=== PATIENT | female | born 1985 ===

== ENCOUNTER 2016-12-12 16:01 | Inpatient (IN) | payer MEDICAID ==
[2016-12-12 16:43] VITALS: BMI 30.8
[2016-12-12] MEDS: Lactated Ringer's 1,000 ML IV SCH ×2 (17:15→18:30)
[2016-12-12] MEDS ORDERED: ceFAZolin 2 GM in Sodium Chloride 0.9% 100 ML IVPB ONE (17:16)
[2016-12-12 17:36] LABS: HEMATOCRIT 35.4 % (34.0-47.0); MEAN CELL VOLUME 84.9 fl (81.0-99.0); MEAN CORPUSCULAR HEMOGLOBIN 27.3 pg (27.0-31.0); MEAN CORPUSCULAR HGB CONC 32.2 g/dL (33.0-37.0); RED CELL DISTRIBUTION WIDTH 14.4 % (11.5-14.5); WHITE BLOOD COUNT 13.1 K/uL (4.8-10.8)
[2016-12-12 17:56] VITALS: TEMP 98.5
[2016-12-12] MEDS ORDERED: Lidocaine 2% PF (10 ml) Amp ONE ×2 (18:20→19:08)
--- NOTE | 2016-12-12 18:38 | OBADHP ---
Datetime: 12/12/2016 18:00 Admit Comment, IP Provider: 31 y/o @ 37.5 wks IUP JENNIFER 12/28/16 by LMP, confirmed with first trim US. Presents with ctx and back pain which started around 12 am last night. States ctx are gettin g closer together, at present roughly 10 min apart. Associated with some brown coloured mucous discha rge. +FM, no VB or LOF : A pos antibody negative, rubella immune, rpr NR, Hep, HIV, GC/chla negative, GBS not don e. Current problems LGA baby, no GDM OBGYN hx: CS x 2 (1999 @ term for non reassuring strip, 2012 @36 wks for IUGR) PSH: CS x2 PMH: autoimmune hepatits (controlled, no meds) MedS: PNV Allergies: ibuprofen (swelling) O: see exam A/P Latent labor; Repeat CS at term Bedside US: cephalic Labs reviewed admit to unit initiate CS protocol d/w Dr. Gianfranco Parker MD ob[facility] addendum: pt seen _ examined by me. agree with above assessment and plan. Datetime: 12/12/2016 17:06 Pelvic Type - PN: Adequate Extremities - PN: Normal Abdomen - PN: Normal Back - PN: Normal Breast - PN: Normal Lungs - PN: Normal Heart - PN: Normal Thyroid - PN: Normal Neurologic - PN: Normal HEENT - PN: Normal General - PN: Normal FHR - Baseline A Provider: 130 Contraction Comments Provider: q4min Comments, ACOG Physical Exam: cervix: long, 0.5 cm, high, nitrazine test negative Gestation - Est Wks by US: 37.5 Vital Signs Provider: Reviewed IP Chief Complaint: Uterine contractions NICHD Variability Prov Fetus A: Moderate 6-25bpm NICHD Accel Fetus A IP Provider: [id number] FHR Category Provider Fetus A: Category I Dilatation, Provider: 1 Genitourinary Exam: Normal DTRs - PN: Normal EGA AdmitDate IP: 37.5 IP Adm Impression: Term, intrauterine IP Admit Plan: Admit to unit; Initiate Section protocol
[2016-12-12] MEDS ORDERED: ePHEDrine 50 mg/ml Inj ONE (18:40)
[2016-12-12] MEDS ORDERED: ceFAZolin 1 GM in Sodium Chloride 0.9% 100 ML IVPB STA (20:27)
[2016-12-12] MEDS ORDERED: ceFAZolin 1 GM in Sodium Chloride 0.9% 100 ML IVPB ONE (20:32)
[2016-12-12] MEDS ORDERED: Naloxone 0.4 mg/ml Inj (Adult) IVP PRN (21:45)
[2016-12-12] MEDS ORDERED: DiphenhydrAMINE 50 mg/ml Inj IVP PRN (21:45)
[2016-12-12] MEDS ORDERED: Oxycodone/Acetaminophen 5/325 mg Tab PO PRN ×3 (21:45→23:08)
[2016-12-12] MEDS ORDERED: Lactated Ringer's 1,000 ML IV SCH (23:15)
[2016-12-13] MEDS ORDERED: Oxycodone/Acetaminophen 5/325 mg Tab PO PRN (01:53)
[2016-12-13] MEDS ORDERED: Naloxone 0.4 mg/ml Inj (Adult) IVP PRN (01:53)
[2016-12-13] MEDS ORDERED: DiphenhydrAMINE 50 mg/ml Inj IVP PRN (01:53)
[2016-12-13] MEDS ORDERED: Lactated Ringer's 1,000 ML IV SCH (01:53)
[2016-12-13] MEDS ORDERED: Simethicone 80 mg Chewtab PO SCH (04:00)
[2016-12-13 07:03] LABS: HEMATOCRIT 31.3 % (34.0-47.0); MEAN CELL VOLUME 84.9 fl (81.0-99.0); MEAN CORPUSCULAR HEMOGLOBIN 27.6 pg (27.0-31.0); MEAN CORPUSCULAR HGB CONC 32.5 g/dL (33.0-37.0); WHITE BLOOD COUNT 15.8 K/uL (4.8-10.8)
[2016-12-13] MEDS: Oxycodone/Acetaminophen 5/325 mg Tab PO PRN ×3 (08:08→18:44)
[2016-12-13] MEDS: Simethicone 80 mg Chewtab PO SCH ×3 (09:33→22:05)
--- NOTE | 2016-12-13 10:37 | OP ---
PROCEDURE DATE: 12/12/2016 PREOPERATIVE DIAGNOSES: 1. Term at 37.5 weeks. 2. Latent phase labor. 3 . History of prior delivery x2. POSTOPERATIVE DIAGNOSES: 1. Term at 37.5 weeks. 2. Latent phase labor. 3 . History of prior delivery x2. PROCEDURE: Repeat low transverse section. SURGEON: Dr. Dash Medel. GAME PRESERVE MANAGER: Dr. Adry Bolanos. SECOND DRUG ABUSE SOCIAL WORKER: PGY1. TYPE OF ANESTHESIA: Epidural. ANESTHESIA ADMINISTERED BY: Dr. Trivedi. FINDINGS: Showed a viable male infant with Apgars of 9 and 9 and a weight of 3315 grams and cephalic presentation. Clear amniotic fluid was noted. There were some adhesions of the bladder to the lower uterine segment. Bilateral grossly normal ovaries and tubes and otherwise grossly normal uterus. INDICATIONS: The patient is a 31-year-old female who presented at 37.5 weeks. She is a 3, para 2 with complains of onset of a contraction since night prior. Upon presentation, she complains of contractions every 5 minutes and rated her abdominal pain 7/10. She was admitted for latent phase labor and repeat section. Informed consent was obtained. DESCRIPTION OF PROCEDURE: The patient was taken to the operating room where she underwent her epidural anesthesia. She has some shortness of breath with the epidural anesthesia, so until this was resolved, the procedure was not started when her normal respiratory ability returned, the section was done. She was prepped and draped in the routine sterile fashion. A Pfannenstiel skin incision was made with the knife at the side of the keloid scar, which was excised. The incision was then extended down to the rectus fascia, which was incised in midline and extended bilaterally. The inferior rectus fascial edge was grasped with Christiano's, elevated, and the underlying rectus muscle was dissected off. The same procedure was performed along the superior rectus fascial edge. The rectus muscle was grasped on either side and elevated with the Gandhi clamps and incised in the midline and the abdominal cavity entered. The incision was extended superiorly and inferiorly. The bladder flap was created using sharp and blunt dissection. Veress incision was made with the knife and the incision was extended laterally and residually and in the cephalocaudad manner. Head was delivered itself by main portion of the baby. The mouth and nares were suctioned. The cord was clamped and cut. The baby was handed off to the awaiting remedy developer. Cord blood was collected. The placenta was delivered spontaneously and intact. The uterus was exteriorized and cleared of all clots and debris. The uterine incision was reapproximated with 0-Vicryl in a running locked fashion followed by an imbricated stitch. The abdomen was irrigated and cleared of all clots and debris. The uterine stitch was reinspected, good hemostasis was confirmed. The uterus was returned to the abdomen and the pelvic cavity. The uterine incision was reinspected and good hemostasis confirmed. The fascia was reapproximated with 0 Vicryl in a running fashion beginning in the right lateral corner going to the midline followed by another stitch beginning in the left lateral corner going to the midline. Each suture was sequentially tied. The wound was irrigated and good hemostasis was confirmed. The subcutaneous tissue was reapproximated with 2-0 plain in a simple interrupted fashion. The skin was reapproximated with 4-0 Vicryl in a subcuticular fashion. Yaritza were placed at the bilateral corners of the incision. All sponge, lap and needle count were correct. The patient returned to recovery room in satisfactory condition. Of note, Dr. Adry Bolanos was my psychological assistant. She used to assist in surgical entry, surgical exposure, delivery of the fetus, surgical closure, and hemostasis. Her assistance was essential to the procedure. Dash Medel MD
--- NOTE | 2016-12-14 00:27 | OBPPN ---
Datetime: 12/13/2016 08:42 PP Pain Prov: Within normal limits PP Nausea Prov: Denies PP Flatus Prov: No PP BM Prov: No PP Breasts Prov: Not Done PP Heart Prov: Normal PP Lungs Prov: Normal PP Abdomen/Uterus Prov: Normal PP Lochia Prov: Normal PP Vulva/Perineum Prov: Not Done PP CVA Tenderness Prov: Normal PP Extremities Prov: Normal PP Progress Prov: Normal PP Comments Phys Exam Prov: Dressing to be removed at 21:00. Incsion check at that point. PP Impression Prov: Normal progression PP Plan Prov: Continue present management PP Progress Note Prov: S: 31 yo s/p on 12/12/2016; Pt is seen and examined at beds skyla this AM. no overnight events. pt reports mild abdo pain but well controlled with meds; alonso d/c, dressing to be removed at 21:00 and incision to be inspected. No nausea, advised to advance diet as tolerated. Attempting to Breast feed. Lochia is similar to menses in volume. No bowel movement of fla tus; Denies: fever, chills, diarrhea, nausea, vomiting, chest pain, dyspnea, or dizziness. O: VS: stable Gen: NAD Cardio: S1S2 no M/G/R Resp: clear breath sounds b/l Abdo: BS+, tenderness to palpation, Incision scar to be inspected when dressing is removed this ev ening at 21:00. Uterus firm and at level of umbilicus. Ext: No pitting edema Neuro: AAOx3, A/P: 31 yo s/p on 12/12/2016. Pt remains afebrile, tolerating pain with meds, do ing well on POD1; OOB with caution SCDs for DVT prophylaxis, encouraged ambulating Percocet 5/325mg and motrin 600 mg for pain Senokot 17.2 mg for constipation Encourage and ambulation f/u CBC today. Anticipated d/c to home 12/15/2016 ABELINO PGY1 Late entry...pt seen 23:30pm OB Hospitalist note: This pt was seen and examined by me. Agree with above note. MEI IP PP Procedures: None Vital Signs Provider PP: Reviewed; Within Normal Limits
[2016-12-14] MEDS: Simethicone 80 mg Chewtab PO SCH ×4 (03:59→22:25)
--- NOTE | 2016-12-14 10:42 | OBPPN ---
Datetime: 12/14/2016 08:54 PP Pain Prov: Within normal limits PP Nausea Prov: Denies PP Flatus Prov: Yes PP BM Prov: No PP Breasts Prov: Not Done PP Heart Prov: Normal PP Lungs Prov: Normal PP Abdomen/Uterus Prov: Normal PP Lochia Prov: Normal PP Vulva/Perineum Prov: Not Done PP CVA Tenderness Prov: Normal PP Extremities Prov: Normal PP C/S Incision Prov: Normal PP Progress Prov: Normal PP Impression Prov: Normal progression PP Plan Prov: Continue present management PP Progress Note Prov: S: 31 yo s/p on 12/12/2016; Pt is seen and examined at beds [facility] this AM. no overnight events. pt reports mild abdo pain but well controlled with meds; alonso d/c, dressing removed; Incision scar noted, well healing with no exudate seen, dry and intact. No nausea, advised to advance diet as tolerated. Attempting to Breast feed. Lochia is similar to menses in [place]. No bowel movement, but has flatus; Denies: fever, chills, diarrhea, nausea, vomiting, chest pain, dyspnea, or dizziness. O: VS: stable Gen: NAD Cardio: S1S2 no M/G/R Resp: clear breath sounds b/l Abdo: BS+, tenderness to palpation, Incision scar noted, well healing with no exudate seen, dry an d intact. Uterus firm and at level of umbilicus. Ext: No pitting edema Neuro: AAOx3, A/P: 31 yo s/p on 12/12/2016. Pt remains afebrile, tolerating pain with meds, do ing well on POD2; OOB with caution encouraged ambulating Percocet 5/325mg and motrin 600 mg for pain Senokot 17.2 mg for constipation Encourage and ambulation f/u CBC: 10.2/31.3 Anticipated d/c to home, tomorrow 12/15/2016 ABELINO PGY1 The patient was seen with the resident and I agree with the note IP PP Procedures: None Vital Signs Provider PP: Reviewed; Within Normal Limits
[2016-12-15] MEDS: Simethicone 80 mg Chewtab PO SCH ×3 (04:19→09:15)
--- NOTE | 2016-12-15 10:50 | OBPPN ---
Datetime: 12/15/2016 06:35 PP Pain Prov: Within normal limits PP Nausea Prov: Denies PP Flatus Prov: Yes PP BM Prov: No PP Breasts Prov: Not Done PP Heart Prov: Normal PP Lungs Prov: Normal PP Abdomen/Uterus Prov: Normal PP Lochia Prov: Normal PP Vulva/Perineum Prov: Not Done PP CVA Tenderness Prov: Normal PP Extremities Prov: Normal PP C/S Incision Prov: Normal PP Progress Prov: Normal PP Impression Prov: Normal progression PP Plan Prov: Discharge PP Progress Note Prov: S: 31 yo s/p on 12/12/2016; Pt is seen and examined at beds [facility]yla this AM. no overnight events. pt reports mild abdo pain but well controlled with meds; alonso d/c, dressing removed; Incision scar noted, well healing with no exudate seen, dry and intact. No nausea, advised to advance diet as tolerated. Attempting to Breast feed. Lochia is similar to menses in [place]. No bowel movement, but has flatus; Denies: fever, chills, diarrhea, nausea, vomiting, chest pain, dyspnea, or dizziness. O: VS: stable Gen: NAD Cardio: S1S2 no M/G/R Resp: clear breath sounds b/l Abdo: BS+, tenderness to palpation, Incision scar noted, well healing with no exudate seen, dry an d intact. Uterus firm and at level of umbilicus. Ext: No pitting edema Neuro: AAOx3 A/P: 31 yo s/p on 12/12/2016. Pt remains afebrile, tolerating pain with meds, do ing well on POD3; OOB with caution encouraged ambulating Percocet 5/325mg and Motrin 600 mg for pain Senokot 17.2 mg for constipation Encourage and ambulation f/u CBC: 10.2/31.3 Anticipated d/c to home, today 12/15/2016 ABELINO PGY1 obh addendum: Patient seen and examined by me. Agree with above assessment and plan with following the changes: Pt has reported allergy to Motrin. She will not be discharged on Motrin. Patient will be discharged on Percocet 5/325. Patient was advised to use this sparingly as it can be addicting. She will be dispensed with 10 pills with the refill 1 of 10 pills. Patient will also be discharged and Senokot as and ferrous sulfate 1 pill daily. Wound wound hygiene and care discussed with patient. IP PP Procedures: None Vital Signs Provider PP: Reviewed; Within Normal Limits
--- NOTE | 2016-12-15 10:53 | OBDCSUM ---
Datetime: 12/15/2016 06:41 Discharged to, Provider: Home Follow up at, Provider: [facility] Disch Instr Activity: Normal activity; May Shower Disch Instr Diet: Regular Discharge Instructions, Provider: Routine instructions given Discharge Diagnosis, Provider: Term Delivered Discharge Time: 12/15/2016 10:00 Follow up in weeks, Provider: 4-7 days wound care; 4-6 weeks post Disch Referrals: None Contraception discussed, Prov: Yes Disch Activity Restrictions: No exercising; No lifting; No driving; No sexual activity; Nothing in v agina - [place], tampons, douche Discharge Comment, Provider: Discharge Summary DOA:12/12/2016 EGA: 37.5 Diagnosis: Term PRisk factors: none summary of : 31 yo F L_D summary DOL: 12/12/2016 at 21:06 NB: M : 11/26 Weight: 3315g PP summary No serious complications during Post-Op. Lochia= menses, mild pain, controlled with medications Rubella immune, Tdap ? Blood type: A+ CBC pp: Discharge Date: 12/15/2016 Time 10:00 AM Discharge Instructions: -encourage -percocet/Ibuprofen for pain PRN -Senokot 17.2 mg qHS for constipation -Ambulate as tolerated -f/u NB visit and PP visit --- Deepak Winslow, PGY-1 Contraception after Delivery: IUD
[2016-12-15 19:39] VITALS: BP 99/58; PULSE 107; RESP 18; O2SAT 100
== END 2016-12-15 12:40 | disposition home or self-care (01) | DRG 371 ==
LOC: H.EROB2 16:01 → H.EROB 16:32 → H.L&D 17:19 → H.EROB2 17:26 → H.OB/GYN 12-13 01:51
PROVIDERS: ADMIT Obstetrics & Gynecology; ATTEND Obstetrics & Gynecology
PROC: 10D00Z1 Extraction of Products of Conception, Low, Open Approach (ICD-10-PCS; principal; 2016-12-12)
PROC: 4A1HXCZ Monitoring of Products of Conception, Cardiac Rate, External Approach (ICD-10-PCS; 2016-12-12)
DX: O34.211 Maternal care for low transverse scar from previous cesarean delivery (principal); O36.63X0 Maternal care for excessive fetal growth, third trimester, not applicable or unspecified; Z37.0 Single live birth; Z3A.37 37 weeks gestation of pregnancy